=== PATIENT | male | born 1990 | race Caucasian/White ===

== ENCOUNTER 2019-03-15 16:32 | Emergency (ER) | payer OTHER ==
--- NOTE | 2019-03-15 18:39 | RAD ---
Date of service: 03/15/2019 HISTORY: Cough and shortness of breath COMPARISON: No prior. TECHNIQUE: Chest PA and lateral FINDINGS: LINES AND TUBES: None. LUNG AND PLEURA: The lungs are well inflated and clear. No pleural effusion or pneumothorax. HEART AND MEDIASTINUM: The heart is not enlarged. No aortic atherosclerotic calcifications present. The hilar and mediastinal contours are within normal limits. SKELETAL STRUCTURES: The bony structures are within normal limits for the patient's age. VISUALIZED UPPER ABDOMEN: Normal. OTHER FINDINGS: None. IMPRESSION: No active pulmonary disease.
--- NOTE | 2019-03-15 18:43 | ED PDOC ---
HPI: SOB/CHF/COPD Time Seen by Provider: 03/15/19 17:16 Chief Complaint (Nursing): Shortness Of Breath Chief Complaint (Provider): shortness of breath History Per: Patient History/Exam Limitations: no limitations Additional Complaint(s): 29 y/o M with no significant PMH who presents for evaluation of SOB. Pt states that he has had intermittent SOB for the past 2 weeks, mostly when he is walking or prolonged after doing physical activity. He has also had nasal congestion with nose bleeds several times over the past week. Has a minimal cough only in the morning, non-productive. Denies fever, chills, night sweats, sore throat, C/P, palpitations, dizziness. He feels that he can take a better breath when breathing through his mouth. Denies recent long distance travel, hx of PE/DVT, leg swelling. Past Medical History Reviewed: Historical Data, Nursing Documentation, Vital Signs Vital Signs: Last Vital Signs Temp 98.5 F 03/15/19 16:45 Pulse 108 H 03/15/19 16:45 Resp 19 03/15/19 16:45 BP 130/80 03/15/19 16:45 Pulse Ox 96 03/15/19 16:45 - Medical History PMH: No Chronic Diseases - Family History Family History: States: Unknown Family Hx - Home Medications Home Medications: Ambulatory Orders Medication Instructions Recorded Fluticasone Nasal [Flonase] 1 spr NS BID PRN #1 spr 03/15/19 Loratadine [Claritin] 10 mg PO DAILY 7 Days tab 03/15/19 - Allergies Allergies/Adverse Reactions: Allergies Allergy/AdvReac Type Severity Reaction Status Date / Time No Known Allergies Allergy Verified 03/15/19 18:06 Wells Criteria for PE - Wells Criteria for Pulmonary Embolism Clinical Signs and Symptoms of DVT: No P.E is #1 Diagnosis, or Equally Likely: No Heart Rate >100: Yes Immobilization at least 3 days;Surgery previous 4 weeks: No Previous, objectively diagnosed PE or DVT: No Hemoptysis: No Malignancy w/treatment within 6 months, or palliative: No Total Score: 1.5 Review of Systems Constitutional: Negative for: Fever, Chills ENT: Positive for: Nose Congestion. Negative for: Throat Pain Cardiovascular: Negative for: Chest Pain, Palpitations Respiratory: Positive for: Cough, Shortness of Breath. Negative for: Hemoptysis Physical Exam - Reviewed Nursing Documentation Reviewed: Yes Vital Signs Reviewed: Yes - Physical Exam Appears: Positive for: Well Head Exam: Positive for: ATRAUMATIC ENT: Positive for: TM Is/Are (normal B/L), Nasal Congestion (swollen nasal tur binates). Negative for: Sinus Pain/Drainage, Pharyngeal Erythema Cardiovascular/Chest: Positive for: Regular Rate, Rhythm Respiratory: Positive for: Normal Breath Sounds Gastrointestinal/Abdominal: Positive for: Normal Exam Lymphatic: Positive for: Normal Exam Neurological/Psych: Positive for: Awake, Alert, Oriented - Laboratory Results Result Diagrams: 03/15/19 18:47 03/15/19 18:47 - ECG O2 Sat by Pulse Oximetry: 96 Medical Decision Making Medical Decision Making: CBC, BMP CXR PA and lateral EKG Flovent EKG: sinus, HR 114, no arrhythmia or abnormality noted. Labs unremarkable CXR: FINDINGS: LINES AND TUBES: None. LUNG AND PLEURA: The lungs are well inflated and clear. No pleural effusion or pneumothorax. HEART AND MEDIASTINUM: The heart is not enlarged. No aortic atherosclerotic calcifications present. The hilar and mediastinal contours are within normal limits. SKELETAL STRUCTURES: The bony structures are within normal limits for the patient's age. VISUALIZED UPPER ABDOMEN: Normal. OTHER FINDINGS: None. IMPRESSION: No active pulmonary disease. Stable for d/c home. Disposition - Clinical Impression Clinical Impression: Nasal congestion - Patient ED Disposition Is Patient to be Admitted: No Counseled Patient/Family Regarding: Studies Performed, Diagnosis, Need For Followup - Disposition Disposition: Routine/Home Disposition Time: 19:45 Condition: STABLE Additional Instructions: Follow up with your primary care doctor for further evaluation. Return to ER if your symptoms persist or worsen despite using medications. Use Flonase and Claritin for nasal congestion/allergy symptoms. Prescriptions: Fluticasone Nasal [Flonase] 1 spr NS BID PRN #1 spr PRN Reason: Nasal Congestion Loratadine [Claritin] 10 mg PO DAILY 7 Days tab Instructions: Seasonal Allergies (DC) Forms: [employer] ([employer]i) Print Language: GEORGIAN
[2019-03-15 18:50] LABS: BASO # 0.1 K/uL (0.0-0.2); BASO % 0.6 % (0.0-2.0); EOS # 0.1 K/uL (0.0-0.7); EOS % 0.8 % (0.0-4.0); HEMOGLOBIN 14.7 g/dL (12.0-18.0); LYMPH # 1.6 K/uL (1.0-4.3); LYMPH % 17.7 % (20.0-40.0); MEAN CELL VOLUME 84.2 fl (80.0-94.0); MEAN CORPUSCULAR HEMOGLOBIN 28.5 pg (27.0-31.0); MEAN CORPUSCULAR HGB CONC 33.8 g/dL (33.0-37.0); MEAN PLATELET VOLUME 8.5 fl (7.2-11.7); MONO # 0.9 K/uL (0.0-0.8); MONO % 9.6 % (0.0-10.0); NEUT # 6.6 K/uL (1.8-7.0); NEUT % 71.3 % (50.0-75.0); RBC 5.17 Mil/uL (4.40-5.90); RED CELL DISTRIBUTION WIDTH 13.1 % (11.5-14.5); WHITE BLOOD COUNT 9.2 K/uL (4.8-10.8)
[2019-03-15 19:04] LABS: BLOOD UREA NITROGEN 12 mg/dl (9-20); CALCIUM 9.5 mg/dL (8.4-10.2); GFR NON-AFRICAN AMERICAN > 60
[2019-03-15 20:47] VITALS: BP 122/71; PULSE 79; RESP 16; TEMP 99.1; O2SAT 96
--- NOTE | 2019-03-16 09:28 | CARD ---
APPROVED REPORT Date of service: 03/15/2019 EKG Measurement Heart [id number] <Conclusion> Sinus tachycardia Otherwise normal ECG
== END 2019-03-15 20:45 | disposition home or self-care (01) ==
LOC: H.ER 16:32
DX: R09.81 Nasal congestion (principal); J44.9 Chronic obstructive pulmonary disease, unspecified